=== PATIENT | male | born 2000 | race Caucasian/White ===

== ENCOUNTER 2025-03-14 10:35 | Emergency (ER) | payer SELFPAY ==
[2025-03-14 10:55] VITALS: BP 126/82; PULSE 74; RESP 16; TEMP 36.8; O2SAT 100
[2025-03-14 11:25] LABS: EDCOVIDSCREEN Negative (Negative); EDINFLUASCREEN Negative (Negative); EDINFLUBSCREEN Negative (Negative); EDSTREPNEGPOS1 Negative (Negative)
--- NOTE | 2025-03-14 11:43 | ED_ITS ---
HPI - URI/Sore Throat General Chief Complaint: Upper Respiratory Infection Stated Complaint: Cold Symptoms Time Seen by Provider: 03/14/25 11:30 Source: patient and RN notes reviewed Mode of arrival: ambulatory Limitations: no limitations History of Present Illness HPI Narrative: 25-year-old male patient presents to the [facility] complaining of upper respiratory symptoms for approximately 6 days. Patient reports cough, congestion, sore throat. Patient says the symptoms are improving. Patient has any chest pain, breathing problems, nausea vomiting diarrhea, fevers, body aches, chills, or other symptoms. Patient has been taking NyQuil to help with symptoms. Related Data Home Medications ?Medication ?Instructions ?Recorded ?Confirmed ?Last Taken ?Type No Home Medications 03/14/25 03/14/25 U nknown History Allergies Allergy/AdvReac Type Severity Reaction Status Date / Time No Known Allergies Allergy Verified 03/14/25 11:04 Review of Systems Review of Systems: CONSTITUTIONAL: Denies fever, chills, or sweats. EYES: Denies visual changes, redness, or discharge. ENT: Denies rhinorrhea, or otalgia. Positive for congestion and sore throat. CARDIOVASCULAR: Denies chest pain, palpitations, or edema. RESPIRATORY: Positive for cough. Negative for wheezing Or dyspnea. GASTROINTESTINAL: Denies abdominal pain, nausea, vomiting, or diarrhea. GENITOURINARY: Denies dysuria or hematuria. SKIN: Denies rash or itching. MUSCULOSKELETAL: Denies back pain, joint pain, or myalgia. NEUROLOGIC: Denies headache, numbness, or weakness. PSYCHIATRIC: Denies anxiety or depression. All other systems reviewed are negative, except as documented in HPI. PMF[facility] Comments At the time of my signature, I reviewed and agree with the nursing past medical, surgical, social, and family history. There is no relevant family history pertinent to the patient complaint. Exam Narrative: GENERAL: This is a well-nourished, well-developed adult, in no apparent distress. They are non ill-appearing, nontoxic appearing. HEAD: normocephalic, atraumatic. EYES: Sclera clear/white. Conjunctiva normal. Vision is grossly intact. Extraocular movements intact EARS: External ears normal, auditory canals clear and without drainage, TMs normal without perforation. Hearing grossly intact. NOSE: External nose normal with no obvious nasal discharge, nasal turbinates erythematous, no rhinorrhea. THROAT: Mucous membranes moist, posterior pharynx erythematous with PND. Uvula midline. NECK: Neck supple, non-tender without lymphadenopathy, masses or thyromegaly. CARDIOVASCULAR: Regular rate and rhythm without murmurs, gallops, or rubs. SKIN: warm, Dry, intact with no suspicious lesions or rash, good texture and turgor. NEURO: awake, alert, and oriented to person, place and time. There were no obvious focal neurologic abnormalities. EXTREMITIES: No joint tenderness, effusion, or edema noted. BACK: Nontender without deformity. Course Course Level of Care: Express Care Visit Vital Signs Vital signs: Vital Signs Temperature 98.2 F 03/14/25 10:55 Pulse Rate 74 03/14/25 10:55 Respiratory Rate 16 03/14/25 10:55 Blood Pressure 126/82 03/14/25 10:55 Pulse Oximetry 100 03/14/25 10:55 Temperature 98.2 F 03/14/25 10:55 Pulse Rate 74 03/14/25 10:55 Respiratory Rate 16 03/14/25 10:55 Blood Pressure 126/82 03/14/25 10:55 Pulse Oximetry 100 03/14/25 10:55 [facility] Narrative Medical decision making narrative: Rapid COVID, flu, strep were negative. A throat culture is pending. Symptoms likely viral etiology, patient reports the symptoms are improving, likely the end of the viral illness. Discussed supportive care. Discussed physical exam findings. Advised supportive measures and signs/symptoms to go to the ER. Pt is appropriate for outpt treatment and f/u. Differential Diagnosis Differential Diagnosis: Differential diagnostic considerations for upper respiratory infection include upper respiratory infection, croup, otitis media, sinusitis, viral infection, bronchitis, influenza, pharyngitis, strep, uvulitis. Lab Data [facility] Lab Attestation statement: I personally reviewed the patient's lab results. Labs: Lab Results 03/14/25 Range/Units 11:23 POC Influenza A Ag Negative (Negative) POC Influenza B Ag Negative (Negative) POC SARS CoV-2 Ag Negative (Negative) POC Grp A Strep Screen Negative (Negative) Critical Care Time Critical Care Time Critical Care Time: No Discharge Plan Discharge Clinical Impression: Upper respiratory infection Qualifiers: URI type: unspecified viral URI Qualified Code(s): J06.9 - Acute upper respiratory infection, unspecified Patient Disposition: Home Condition: Stable Instructions: Antibiotic Form, Upper Respiratory Infection (ED) Additional Instructions: Your rapid, COVID, flu, rapid strep swab was negative today at [facility]. You will be notified in a few days if the culture comes back positive for strep, and appropriate antibiotics will be called in for you at that time. Your symptoms are likely due to a viral illness, which is not treated with antibiotics. Viral symptoms can be present for up to 7 to 10 days. Take Tylenol or ibuprofen as needed for fever or pain. Rest and stay hydrated. Follow up with your PCP in 3-5 days if symptoms are not improving. Go to the ER immediately if he developed chest pains, nausea vomiting, difficulty breathing or swallowing, or any serious concerns. Patient Language: Comoran Prescriptions: No Action No Home Medications Follow-up/Referrals: PHYSICIAN,FOOT ORTHOPEDIST [Primary Care Provider, Internal Medicine] Stand Alone Forms: Work/School Release IP Time of Disposition: 11:42
== END 2025-03-14 11:46 | disposition home or self-care (01) ==
DX: J06.9 Acute upper respiratory infection, unspecified (principal); Z20.822 Contact with and (suspected) exposure to COVID-19
CPT/HCPCS: 87081; 87426; 87804; 87880; 99213; G0463

== ENCOUNTER 2025-03-15 14:28 | Emergency (ER) | payer OTHER, SELFPAY ==
[2025-03-15 14:48] VITALS: BP 136/87; PULSE 82; RESP 16; TEMP 36.6; O2SAT 100
--- NOTE | 2025-03-15 15:13 | ED_ITS ---
HPI - URI/Sore Throat General Chief Complaint: Upper Respiratory Infection Stated Complaint: sinus issues Time Seen by Provider: 03/15/25 15:13 Source: patient Mode of arrival: ambulatory Limitations: no limitations History of Present Illness HPI Narrative: 25 yo M here with c/o congestion, additional work note. Was seen here yesterday. Told him to try nasal spray but not helping. Was not aware that his diagnosis was viral and thought maybe he needed an antibiotic. Needs work note for today and tomorrow. All systems reviewed and negative except as noted above. Related Data Home Medications ?Medication ?Instructions ?Recorded ?Confirmed ?Last Taken ?Type No Home Medications 03/14/25 03/15/25 U nknown History Allergies Allergy/AdvReac Type Severity Reaction Status Date / Time No Known Allergies Allergy Verified 03/16/25 07:25 [facility] Comments At time of signature, agree with nursing past medical, surgical, social and family history. There is no relevant family history pertinent to the presenting complaint. Exam Narrative: GENERAL: This is a well-nourished, well-developed patient, in no apparent distress. HEAD: normocephalic, atraumatic. EYES: PERRL. Sclera clear/white. Vision is grossly intact. EARS: External ears normal, auditory canals clear and without drainage, TMs normal without perforation. Hearing grossly intact. NOSE: External nose normal with mild congestion, clear nasal drainage THROAT: Mucous membranes moist, posterior pharynx clear. NECK: Neck supple, non-tender without lymphadenopathy, masses or thyromegaly. CARDIOVASCULAR: Regular rate and rhythm without murmurs, gallops, or rubs. RESPIRATORY: Clear to auscultation. Breath sounds equal bilaterally. No wheezes, rales, or rhonchi. SKIN: warm, Dry, intact with no suspicious lesions or rash, good texture and turgor. NEURO: awake, alert, and oriented to person, place and time. There were no obvious focal neurologic abnormalities. EXTREMITIES: No joint tenderness, effusion, or edema noted. Course Course Level of Care: Express Care Visit Vital Signs Vital signs: Vital Signs Temperature 36.6 C 03/15/25 14:48 Pulse Rate 82 03/15/25 14:48 Respiratory Rate 16 03/15/25 14:48 Blood Pressure 136/87 03/15/25 14:48 Pulse Oximetry 100 03/15/25 14:48 Temperature 36.6 C 03/15/25 14:48 Pulse Rate 82 03/15/25 14:48 Respiratory Rate 16 03/15/25 14:48 Blood Pressure 136/87 03/15/25 14:48 Pulse Oximetry 100 03/15/25 14:48 Reviewed MDM MDM Narrative Medical decision making narrative: Patient is well-appearing, nontoxic. Tested negative for COVID influenza yesterday. Patient given additional work note and recommend he purchase pseudoephedrine to treat congestion. Differential Diagnosis Differential Diagnosis: Differential diagnostic considerations for upper respiratory infection include upper respiratory infection, croup, otitis media, sinusitis, viral infection, bronchitis, influenza, pharyngitis, strep, uvulitis.? Discharge Plan Discharge Clinical Impression: Acute viral sinusitis Patient Disposition: Home Condition: Stable Instructions: Sinusitis (ED) Additional Instructions: your symptoms are viral and may last 10-14 days. Purchase [id number] pseudoephedrine and take as directed on packaging. Patient Language: Telugu Prescriptions: No Action No Home Medications Follow-up/Referrals: PHYSICIAN,PAINTING SUPERVISOR [Primary Care Provider, Internal Medicine] Stand Alone Forms: Work/School Release IP Time of Disposition: 15:20
== END 2025-03-15 15:26 | disposition home or self-care (01) ==
PROVIDERS: Emergency Provider Nurse Practitioner Family
DX: J01.90 Acute sinusitis, unspecified (principal)
CPT/HCPCS: 99211; G0463